=== PATIENT | female | born 1985 | race African-American/Black ===

== ENCOUNTER 2025-06-12 06:48 | Emergency (ER) | payer SELFPAY ==
[2025-06-12] VITALS (8 sets, daily range): BP systolic 121–160; BP diastolic 65–79; PULSE 74–97; RESP 18–19; TEMP 36.8; O2SAT 98–100
--- NOTE | ~2025-06-12 | XR_ITS ---
Examination: XR hip LT min 2V Clinical History: injury WAS HIT AT [employer] TO LT HIP Comparison: None Technique: 2 views left hip Findings/impression: 1. No fracture or dislocation left hip. 2. No fracture of visualized pelvic bones. Reviewed, dictated and finalized at location R.
--- NOTE | 2025-06-12 07:39 | ED.LOWEXIN ---
HPI - Extremity Injury (Lower) General Chief Complaint: Extremity Injury, Lower Stated Complaint: L hip pain after injury Time Seen by Provider: 06/12/25 06:52 Source: patient Mode of arrival: ambulatory Limitations: no limitations History of Present Illness HPI Narrative: Patient present with report of left hip pain after being struck by something in this area while shopping at [employer]. Does not wear tight pants/belts/toolbelt. Her hip feels stiff and she has had to manually move her leg to overcome this. Crossing her leg left over right and elevating it improves pain. Notes it feels painful to touch. Has not had any bruising externally. Has not taken any medications for this including no OTCs. Has experienced intermittent paresthesias since Tuesday at this area and down lateral aspect of thigh. No saddle anesthesia. No bowel/bladder incontinence. Does not have a PCP. Pain described as sharp and throbbing. Denies dysuria, hematuria, urgency or frequency. No history of diabetes mellitus. Related Data Allergies Allergy/AdvReac Type Severity Reaction Status Date / Time No Known Allergies Allergy Verified 06/12/25 10:48 Exam Narrative: GENERAL: Well-appearing, well-nourished, and in no acute distress. HEAD: Normocephalic, atraumatic. EYES: Non injected, non icteric ENT: Nares clear, no rhinorrhea or epistaxis. Gross auditory acuity intact. NECK: Supple. No meningismus. CHEST: Speaking in full sentences. No respiratory distress. HEART: Regular rate and rhythm. . ABDOMEN: Soft, nondistended. No rigidity or guarding. Not peritoneal EXTREMITIES: Normal range of motion. No lower extremity edema. Able to demonstrate left hip flexion and adduction. Pelvis: Stable to compression without instability. No ecchymosis overlying left hip or leg. Mild TTP overlying left iliac crest. SKIN: Warm, dry, no rash. NEURO: No focal deficits. Alert and oriented. Answering questions. Following commands. Normal speech without aphasia or dysarthria. PSYCH: Normal mood and affect. Course Vital Signs Vital signs: Vital Signs Temperature 98.2 F 06/12/25 06:52 Pulse Rate 96 06/12/25 06:52 Respiratory Rate 19 06/12/25 06:52 Blood Pressure 140/77 06/12/25 06:52 Pulse Oximetry 100 06/12/25 06:52 Oxygen Delivery Room Air 06/12/25 06:52 Temperature 98.2 F 06/12/25 06:52 Pulse Rate 74 06/12/25 11:09 Respiratory Rate 18 06/12/25 11:09 Blood Pressure 160/74 H 06/12/25 11:09 Pulse Oximetry 100 06/12/25 11:09 Oxygen Delivery Room Air 06/12/25 06:52 MDM - Extremity Injury (Lower) MDM Narrative Medical decision making narrative: Patient presents with report of left hip pain after being struck by something while shopping at [place]. In the emergency department she is afebrile with vital signs within normal limits. Pain is actually overlying left iliac crest which is otherwise without bony deformity or overlying ecchymosis. Distribution of paresthesias however is consistent with lateral femoral cutaneous although patient without diabetes or modifiable risk factors such as tight pants/belt. Abnormal urinalysis but I suspect this is due to contamination and otherwise patient is without symptoms as she denies any dysuria, hematuria, urgency, or frequency. Will defer treatment. test negative. Suspect bony contusion. Discharged with Rx for OTC analgesic medications and advised follow up. Provided PCP info. Given strict ED return precautions. Differential Diagnosis Differential diagnosis: Likely fracture of femur, fracture of hip and other (pelvic fracture; considered nerve injuries including lateral femoral cutaneous; bony contusion) Lab Data Attestation: I reviewed the patient's lab results. Labs: Lab Results 06/12/25 Range/Units 07:48 Urine Color Yellow (Yellow) Urine Appearance Cloudy H (Clear) Urine pH 6.0 (5.0-9.0) Ur Specific [place] 1.024 (1.001-1.035) Urine Protein Negative (Negative) mg/dL Urine Glucose (UA) Negative (Negative) mg/dL Urine Ketones Trace H (Negative) mg/dL Ur Blood (Man) Negative (Negative) Urine Nitrate Negative (Negative) Urine Bilirubin Negative (Negative) Urine Urobilinogen 1.0 (<2.0) mg/dL Add Ur Microanalysis Reviewed Leukocyte Esterase Rfl 1+ H (Negative) JAYNE/UL Urine RBC 3-5 H (0-2) /hpf Urine WBC 0-5 (0-3) /hpf Ur Squamous Epith Cells Many H (Few) /hpf Urine Bacteria 2+ H /hpf Urine Casts 0-2 POC Urine HCG, Qual Negative (Negative) Imaging Data Radiologist's impression: Findings/impression: 1. No fracture or dislocation left hip. 2. No fracture of visualized pelvic bones. Discharge Plan Discharge Clinical Impression: Abnormal urinalysis, Contusion of hip, left Patient Disposition: Home Condition: Stable Instructions: Antibiotic Form, Meralgia Paresthetica (ED), Hip Contusion (ED) Additional Instructions: No evidence of any fracture or dislocation. I suspect you did sustain a bony contusion. The distribution of your symptoms also sounds potentially consistent with meralgia paresthetica. Acetaminophen/Tylenol (maximum 4000 mg per day) is safe to take with NSAIDs (ibuprofen/Motrin) for pain relief. Your urinalysis had some bacteria but also had indicators that it was contaminated by a general skin cells and you are otherwise asymptomatic. Follow-up with primary care physician. Because you do not have 1 the name of the doctors listed below. Return to the emergency department with any new or worsening symptoms. Return to the ER if you have increased pain in your back, you develop lower extremity weakness/numbness/paralysis, you have numbness or tingling in your private parts, or you are unable to control your ability to urinate/stool. Patient Language: Romanian Prescriptions: New acetaminophen 500 mg capsule 1,000 mg PO Q6H PRN (Reason: pain) Qty: 30 0RF ibuprofen 200 mg capsule 600 mg PO Q6H PRN (Reason: pain) Qty: 30 0RF Follow-up/Referrals: PHYSICIAN,HYDROELECTRIC PLANT OPERATOR [Primary Care Provider, Internal Medicine] Geovanny Sheppard MD [Physician, Family Practice] Stand Alone Forms: Work/School Release IP Time of Disposition: 10:49
--- OUTSIDE RECORDS SUMMARY | 2025-06-12 07:40 | XMS_ITS | Clinical Summary ---
Author Organization [facility] Address [address] [place] [address] Care Team Providers Care Drophammer Operator Name Role Phone Unknown, Notinfile Primary Care Provider Unavail able Allergies Active Allergy Reactions Criticality Noted Date Comments Iodine Hives Medium 04/29/2025 Latex Rash Medium 04/29/2025 Penicillins Anaphylaxis High 04/29/2025 Medications fluconazole (DIFLUCAN) 150 mg tablet Take 1 tablet (150 mg total) by mouth once a week 2 tablet 04/30/2025 Active predniSONE (DELTASONE) 10 mg tablet Take 6 tablets oral daily for 2 days then 4 tablets daily for 2 days then 3 tablets daily for 2 days then 2 tablets daily for 2 days then 1 tablet daily for 2 days then stop. 32 tablet 05/02/2025 Active Encounters Date Type Department Care Team Description 05/02/2025 3:58 AM CDT - 05/02/2025 4:50 AM CDT Emergency [facility] Emergency Department [address] [place] [phone] Lamonte Trujillo MD Dermatitis (Primary Dx); Rash Discharge Disposition: Discharge to home or self care 04/30/2025 8:50 AM CDT - 04/30/2025 9:13 AM CDT Emergency [address] [address] Tinea corporis (Primary Dx) Discharge Disposition: Discharge to home or self care 04/29/2025 11:17 PM CDT - 04/30/2025 2:00 AM T [facility] Emergency Department [address] [place] [phone] Discharge Disposition: Left without being seen from Last 3 Months Social History Tobacco Use Types Packs/Day Years Used Date Smoking Tobacco: Never Assessed Personal Safety Answer Date Recorded Have you ever been in or are you currently in a harmful physical or emotional relationship or is someone making you feel afraid or unsafe? Denies 05/02/2025 Comments Unknown Sex and Gender Information Value Date Recorded Sex Assigned at Not on file Legal Sex Female 11:17 PM CDT Gender Identity Not on file Sexual Orientation Not on file Last Filed Vital Signs Vital Sign Reading Time Taken Comments Blood Pressure 119/75 05/02/2025 12:48 AM CDT Pulse 84 05/02/2025 12:48 AM CDT Temperature 36.7 C (98 F) 05/02/2025 12:48 AM CDT Respiratory Rate 18 05/02/2025 12:48 AM CDT Oxygen Saturation 100% 05/02/2025 12:48 AM CDT Inhaled Oxygen Concentration - - Weight 81.6 kg (180 lb) 05/02/2025 12:48 AM CDT Height 165.1 cm (5' 5) 05/02/2025 12:48 AM CDT Body Mass Index 29.95 05/02/2025 12:48 AM CDT Plan of Treatment Health Maintenance Due Date Last Done Comments Cervical Cancer Screening 1986 Depression Screening 1986 Hepatitis C Screening 1986 DTaP/Tdap/Td Vaccine (1 - Tdap) 1997 Varicella Vaccines (1 of 2 - 13+ 2-dose series) 1999 Hepatitis B Screening 2004 Regular Well Visit/Exam 18-64 2004 HPV Vaccines (1 - 3-dose SCD M series) 2013 Influenza Vaccine (#1) 2025 Pneumococcal vaccine <65 Aged Out No longer eligible based on patient's age to complete this topic Care Teams Drophammer Operator Relationship Specialty Start Date End Date Unknown, Notinfile PCP - General 04/30/25
[2025-06-12 07:56] LABS: BEDSIDEPREGUCG Negative (Negative)
[2025-06-12 08:13] LABS: Add Urine Microscopic? YES; Appearance Urine Cloudy (Clear); Glucose Urine UA Negative (Negative); Leukocyte Esterase Ur 1+ LEU/UL (Negative); Need Manual Microscopic Reviewed; Nitrate Urine Negative (Negative); Non Pathogenic Casts 0-2; Specific Grav Ur 1.024 (1.001-1.035)
[2025-06-12] MEDS: KETOROLAC 30 MG/ML VIAL (*BKC) 15 MG IM (11:08)
[2025-06-12] MEDS: ACETAMINOPHEN 500 MG TABLET 1000 MG PO (11:08)
== END 2025-06-12 11:03 | disposition home or self-care (01) ==
PROVIDERS: Emergency Provider Student in an Organized Health Care Education/Training Program
DX: S70.02XA Contusion of left hip, initial encounter (principal); R82.998 Other abnormal findings in urine; W22.8XXA Striking against or struck by other objects, initial encounter
CPT/HCPCS: 73502; 81001; 81025; 96372; 99283; A9270; J1885